=== PATIENT | female | born 1940 | race Caucasian/White ===

== ENCOUNTER 2019-04-06 12:18 | Emergency (ER) | payer OTHER ==
[~2019-04-06] VITALS: Ht 149.9 cm; Wt 46.3 kg
[2019-04-06] MEDS ORDERED: PRAVASTATIN SOD40 MG (12:32)
[2019-04-06] MEDS ORDERED: VITAMIN B122500 MCG (12:32)
[2019-04-06] MEDS ORDERED: ASPIR 8181 MG (12:32)
== END 2019-04-06 13:47 | disposition home or self-care (01) ==
LOC: ER 12:18
DX: M54.89 Other dorsalgia (principal)

== ENCOUNTER 2019-04-11 08:41 | Emergency (ER) | payer OTHER ==
[~2019-04-11] VITALS: Ht 149.9 cm; Wt 47.2 kg
[~2019-04-11 08:41] MED LIST: ASPIR 8181 MG; PRAVASTATIN SOD40 MG; VITAMIN B122500 MCG
[2019-04-11] MEDS ORDERED: SKELAXIN800 MG PO (10:43)
[2019-04-11] MEDS ORDERED: KETO10TA2 PO (10:43)
[2019-04-11] MEDS ORDERED: NEURONTIN300 MG PO (10:43)
== END 2019-04-11 11:04 | disposition home or self-care (01) ==
LOC: ER 08:41
DX: S43.492A Other sprain of left shoulder joint, initial encounter (principal); X50.0XXA Overexertion from strenuous movement or load, initial encounter; Y93.89 Activity, other specified; Y92.89 Other specified places as the place of occurrence of the external cause; Y99.8 Other external cause status

== ENCOUNTER 2021-09-25 11:12 | Emergency (ER) | payer OTHER ==
[~2021-09-25] VITALS: Ht 124.5 cm; Wt 50.8 kg
[~2021-09-25 11:12] MED LIST changes: +KETO10TA2 PO; +NEURONTIN300 MG PO; +SKELAXIN800 MG PO
== END 2021-09-25 12:07 | disposition home or self-care (01) ==
LOC: ER 11:12
DX: M79.642 Pain in left hand (principal); M25.532 Pain in left wrist